=== PATIENT | male | born 2005 | race Caucasian/White ===

== ENCOUNTER 2025-03-20 00:01 | Emergency (ER) | payer MEDICAID, OTHER ==
[~2025-03-20] VITALS: Ht 188 cm; Wt 97.4 kg
[2025-03-20 00:06] VITALS: O2SAT 99
[2025-03-20] MEDS: FLUORESCEIN SODIUM 1MG/STRIP LEFTEYE ONE (01:30)
[2025-03-20] MEDS: TETRACAINE 0.5% OPHTH DROPS 4ML BOTHEYE ONE (01:30)
[2025-03-20] MEDS: FLUORESCEIN SODIUM 1MG/STRIP LEFTEYE NR (02:34)
[2025-03-20] MEDS: TETRACAINE 0.5% OPHTH DROPS 4ML BOTHEYE NR (02:34)
[2025-03-20] MEDS ORDERED: CIPR2.5D20 LEFTEYE (02:47)
[2025-03-20] MEDS ORDERED: BRIM1DRO EACHEYE (02:47)
[2025-03-20 02:59] VITALS: BP 133/79; PULSE 76; RESP 14; TEMP 36.9; O2SAT 100
== END 2025-03-20 03:02 | disposition home or self-care (01) ==
LOC: ER 00:01
DX: H16.002 Unspecified corneal ulcer, left eye (principal); Z79.899 Other long term (current) drug therapy
CPT/HCPCS: 99283